=== PATIENT | male | born 1940 | race Caucasian/White ===

== ENCOUNTER → 2021-10-12 | Day surgery (SDC) | payer MEDICARE ==
[~2021-10-12] MED LIST: ALPRAZolam 0.25 MG TAB PO PRN; ALPRAZolam 0.5 MG TAB PO PRN; ASPIRIN 325 MG TAB PO STA; ATORVASTATIN 80 MG TAB PO STA; HEPARIN SODIUM 1,000 UN/ML (10ML VL) IV ONE; HEPARIN SODIUM 1,000 UN/ML (10ML VL) ONE; HEPARIN SODIUM,PORCINE 10,000 UNIT in SODIUM CHLORIDE 0.9% 1,000 ML IRRIGATION PRN; HEPARIN SODIUM,PORCINE 2,500 UNIT in SODIUM CHLORIDE 0.9% 250 ML IRRIGATION PRN; IOPAMIDOL-370 125ML BTL INJ ONE; LIDOCAINE 1% INJ 10MG/ML (5 ML VIAL-PF) SQ ONE; MIDAZOLAM 2 MG/2 ML VIAL IV ONE; NITROGLYCERIN SL TABS 0.4 MG TAB SUBLINGUAL PRN; RX INFO: IV CONTRAST WAS GIVEN 1 EACH MISC MISCELLANE PRN; SODIUM CHLORIDE 0.9% 1,000 ML in EMPTY BAG 1 BAG IV SCH; VERAPAMIL 2.5 MG/ML 2 ML AMP ONE; VERAPAMIL SYRINGE (5 MG/10 ML) INTRAARTER ONE; fentaNYL (PF) 50 MCG/ML 2 ML AMP IV ONE; fentaNYL (PF) 50 MCG/ML 2 ML AMP ONE
[2021-10-12 09:27] VITALS: RESP 16; TEMP 97.7
--- NOTE | 2021-10-12 13:55 | CC ---
CARDIAC CATHETERIZATION REPORT INDICATION: Chest pain with abnormal stress test showing ischemia involving inferior wall. REFERRING PHYSICIAN: Dr. Marry Santana. PROCEDURE NOTE: After obtaining informed consent, left heart catheterization, coronary angiogram are performed via the right radial artery using standard Reynold catheters. The left ventricular end-diastolic pressure was obtained using the right Reynold catheter. The patient tolerated the procedure well without any obvious immediate complications. Received moderate conscious sedation. Total sedation time was 22 minutes. Using a micropuncture needle with Seldinger technique, right radial artery access was obtained and under fluoroscopic guidance, catheters and wires were exchanged into the ascending aorta. Patient received 5 mg of verapamil and 5000 units of heparin per protocol. FINDINGS: HEMODYNAMICS: Left ventricular end-diastolic pressure is around 20 mm. There is no significant gradient across the aortic valve. LEFT VENTRICULOGRAM: Not performed. ANGIOGRAPHIC DATA: LEFT MAIN CORONARY ARTERY: Left main coronary artery is a normal-sized vessel and is free of stenosis. Divides into left anterior descending coronary artery and circumflex coronary artery. LEFT ANTERIOR DESCENDING CORONARY ARTERY: LAD and its branches are free of significant stenosis. CIRCUMFLEX CORONARY ARTERY: Circumflex coronary artery gives off a high OM branch. Both circ and the OM are free of stenosis. RIGHT CORONARY ARTERY: Right coronary artery is a large dominant vessel and is free of significant disease. CONCLUSIONS: 1. Normal coronary arteries. 2. Elevated left ventricular end-diastolic pressure. PLAN: I reviewed angiographic data with the patient and told him that his chest discomfort is noncardiac in origin and the stress test is a false-positive stress test. The patient's management is going to be in the form of risk factor modification. Continue medical therapy. MMODL / IJN: [id number] /
[2021-10-12 15:44] VITALS: BP 114/55; PULSE 56
== END ==
LOC: CATHCVL 08:30
PROVIDERS: ATTEND Internal Medicine Cardiovascular Disease
DX: R07.2 Precordial pain (principal); I10 Essential (primary) hypertension; R94.39 Abnormal result of other cardiovascular function study
CPT/HCPCS: 93458; J2250; J2001; J3010; J1644; Q9967